=== PATIENT | male | born 1950 | race Caucasian/White ===

== ENCOUNTER 2018-07-10 05:31 | Inpatient (IN) ==
[2018-07-10] MEDS ORDERED: Metoprolol Tartrate 25 MG Tablet PO ONE (05:55)
[2018-07-10] MEDS ORDERED: Chlorhexidine Gluconate 2% 1 Pack (2 Cloths) TOPICAL ONE (05:55)
[2018-07-10] MEDS ORDERED: Sodium Chlor 0.9% Inj 500 ML IV.SIG SCH (06:00)
[2018-07-10] MEDS ORDERED: Thrombin Topical Soln 20,000 UNIT Vial TOPICAL ONE (06:35)
[2018-07-10] MEDS ORDERED: ceFAZolin 2 GM Premix Inj 2 GM/50 ML PIGGYBACK IV.SIG ONE ×2 (06:35→12:03)
[2018-07-10] MEDS ORDERED: Bupivacaine PF 0.5% Inj 10 ML Vial ONE (06:35)
[2018-07-10] MEDS ORDERED: Heparin/NS PF Inj 500 ML ONE ×3 (06:35→13:18)
[2018-07-10] MEDS ORDERED: Gelatin Size 100 Topical Foam ONE (06:35)
[2018-07-10] MEDS ORDERED: Heparin 10,000 UNITS/10 ML Vial (for IV use) ONE ×2 (06:35→13:51)
[2018-07-10] MEDS ORDERED: Protamine Sulfate Inj 50 MG/5 ML Vial ONE (06:35)
[2018-07-10] MEDS ORDERED: Insulin NovoLIN Regular Correctional Sugar Inj ONE (06:41)
[2018-07-10] MEDS ORDERED: Acetaminophen 500 MG Tablet ONE (06:49)
[2018-07-10] MEDS ORDERED: Famotidine PF Inj 20 MG/2 ML Vial ONE (06:49)
[2018-07-10] MEDS ORDERED: Gabapentin 300 MG Capsule ONE (06:49)
[2018-07-10] MEDS ORDERED: Lidocaine PF 1% Inj 5 ML Syringe INFILTRATN ONE (07:31)
[2018-07-10] MEDS ORDERED: Phenylephrine/NS 1000 MCG/10ML Syringe IV.PUSH ONE (07:31)
[2018-07-10] MEDS ORDERED: Neostigmine Inj 5 MG/5 ML Syringe IV.PUSH ONE (07:31)
[2018-07-10] MEDS ORDERED: Glycopyrrolate Inj 1 MG/5 ML Syringe IV.PUSH ONE (07:31)
[2018-07-10] MEDS ORDERED: Sodium Chlor 0.9% Inj 500 ML IV.CONT ONE ×2 (07:31)
[2018-07-10] MEDS ORDERED: fentaNYL Citrate Inj 100 MCG/2 ML Ampul ONE (15:14)
--- NOTE | 2018-07-10 16:08 | P.OP ---
Preoperative Diagnosis: Right lower extremity critical limb ischemia with rest pain Postoperative Diagnosis: Right lower extremity critical limb ischemia with rest pain Date of procedure: 07/10/18 Procedure: 1. Right external iliac artery endarterectomy with patch angioplasty 2. Right common femoral artery endarterectomy with patch angioplasty 3. Right profunda femoral artery endarterectomy patch angioplasty 4. Revision of the proximal anastomosis of right femoropopliteal bypass 5. Jump bypass from right femoropopliteal bypass vein graft to the right peroneal artery using reversed cephalic vein. 6. Right cephalic vein harvest. Anesthesia: GETA Surgeon: Jeffrey Kelley MD Estimated blood loss (mL): 800 IV fluids (mL): 5,000 Operation and Findings: Findings 1. The right external iliac artery was noted to be heavily calcified with significant plaquing and atherosclerotic disease. It was very difficult to get proximal control. This contributed to the majority of our blood loss. 2. Early bifurcation of the profunda femoral artery. The vessel was noted to be heavily calcified. 3. I elected to perform an endarterectomy and redo the proximal anastomosis of the femoral-popliteal bypass graft. 4. A jump bypass from the femoropopliteal vein graft at the level of the knee to the right peroneal artery was performed successfully using the right cephalic vein. The patient has multiphasic dorsalis pedis and posterior tibial signals at the end of the procedure. Operation details The patient was taken to the operating room, laid supine on the OR table. After general trach anesthesia, the patient was prepped and draped in the standard sterile fashion. Timeout was called with all members in the OR in agreement. An incision was made in the right medial calf and dissection was taken down through the subcutaneous tissues electrocautery. The previous femoropopliteal bypass graft was dissected and encircled Silastic loop. The soleus muscle mobilized medially. The peroneal artery identified and dissected. Attention was turned to the right groin. A longitudinal incision was made in the right groin dissection was taken down through the subcutaneous tissues electrocautery. A lot of scarring from previous surgery was encountered. The right external iliac artery, common femoral artery, femoropopliteal bypass graft, superficial femoral artery, profunda femoral artery were dissected and encircled with Silastic loops. Attention was turned to the right cephalic vein harvest. An incision was made in the right wrist just above the cephalic vein. The vein was dissected along its length. All branches ligated and divided. The vein was ligated proximally and distally and removed to use as a conduit. The patient was heparinized. I was able to get proximal control control of the right external iliac artery using multiple clamps. Distal control was obtained. An arteriotomy was created in the common femoral artery and extended caudad and cephalad. The external iliac artery was noted to be heavily calcified with extensive amount of plaque. I performed endarterectomy of the right external iliac artery common femoral artery, and profunda femoral artery successfully. At this point, the clamp was removed and we noted a tear in the right external iliac artery where the clamp was placed. The clamp was reapplied and more cephalad dissection of the right external iliac artery was performed. The vessel was heavily calcified along its entire length. I was able to get proximal control. The artery was opened proximally and further endarterectomy of the external iliac artery was performed. There was a tear in the posterior wall of the artery that was repaired using interrupted 6-0 Prolene sutures. The artery was repaired using a pericardial patch that was cut to appropriate length and secured using a Prolene suture. Hemostasis is achieved by applying multiple Prolene sutures and pledgets. An arteriotomy is created in the patch and the previous femoropopliteal bypass vein graft was anastomosed to the right common femoral artery using a 6-0 Prolene suture in a running fashion. Hemostasis achieved. Attention was turned to the femoropopliteal bypass graft at the level of the knee. Proximal distal control was obtained and arteriotomy is created. The cephalic vein was brought into the field and was reversed. The proximal anastomosis fashioned using a 6-0 Prolene suture in a running fashion. Proximal distal control was obtained in the peroneal artery. Arteriotomy is created and the distal anastomosis fashioned using a 6-0 Prolene suture in running fashion. Hemostasis achieved. All wounds were closed using multiple Vicryl sutures followed by Monocryl suture. The right medial calf wound was closed using fernandez. Sterile dressing was applied. A wound VAC was placed to the right groin. Patient was taken to recovery unit in stable condition.
[2018-07-10] MEDS ORDERED: Morphine Inj 4 MG/ML Vial IV.PUSH PRN (16:11)
[2018-07-10] MEDS ORDERED: Bisacodyl 10 MG Supp RECTAL PRN (16:11)
[2018-07-10] MEDS ORDERED: *morphine SULFATE 4 MG/ML PERIprocedure ONLY ONE (16:15)
[2018-07-10] MEDS ORDERED: *HYDROmorphone PF Inj 1 MG/ML Ampul PERIprocedural Use ONLY ONE (16:32)
[2018-07-10] MEDS: Sod Chloride 0.9% Inj 1,000 ML IV.CONT SCH ×2 (17:10→23:35)
[2018-07-10] MEDS: Senna/Docusate Sodium 8.6/50 MG Tablet PO SCH (20:43)
[2018-07-10] MEDS: Famotidine 20 MG Tablet PO SCH (20:43)
[2018-07-10] MEDS: glipiZIDE 10 MG Tablet PO SCH (21:09)
[2018-07-11 05:16] LABS: Calcium 7.7 mg/dL (8.5-10.1); Potassium 4.2 meq/L (3.5-5.1)
[2018-07-11 05:19] LABS: Hematocrit 30.3 % (39.0-51.0); Hemoglobin 10.6 gm/dL (13.0-17.0); Mean Corpuscular HGB Conc 35.1 % (32.0-36.0); Mean Corpuscular Hemoglobin 32.1 pg (27.0-34.0); Mean Corpuscular Volume 91.5 fL (80.0-100.0); Mean Platelet Volume 8.5 fL (7.0-11.0); Platelet Count 202 th/mm3 (150-450); Red Blood Count 3.31 mil/mm3 (4.50-5.90); Red Cell Distribution Width 13.9 % (11.6-17.2)
[2018-07-11] MEDS: Digoxin 250 MCG Tablet PO SCH (08:17)
[2018-07-11] MEDS: glipiZIDE 10 MG Tablet PO SCH ×2 (08:17→21:19)
[2018-07-11] MEDS: dilTIAZem CD 180 MG Capsule PO SCH (08:19)
[2018-07-11] MEDS: Famotidine 20 MG Tablet PO SCH ×2 (08:19→21:19)
[2018-07-11] MEDS: Senna/Docusate Sodium 8.6/50 MG Tablet PO SCH ×2 (08:19→21:19)
--- NOTE | 2018-07-11 10:43 | P.PNVS ---
Subjective Post Op Day #: 1 Procedure: R groin reconstruction, distal bypass revision with arm vein Subjective/Hospital Course: looks great, pain controlled eager to have a cup of coffee notes that his foot is warmer than it has been in a long time Objective Vital Signs / I&O: Vital Signs 07/10/18 15:52 07/10/18 16:00 07/10/18 16:15 Temperature 98.0 F Pulse Rate 104 H 104 H 101 H Respiratory Rate 15 16 16 Blood Pressure 103/61 107/59 L 113/68 Pulse Oximetry 96 96 94 L 07/10/18 16:30 07/10/18 16:45 07/10/18 17:00 Temperature Pulse Rate 101 H 77 87 Respiratory Rate 16 16 16 Blood Pressure 116/67 105/68 109/59 L Pulse Oximetry 94 L 94 L 93 L 07/10/18 17:15 07/10/18 17:30 07/10/18 17:45 Temperature 98.5 F Pulse Rate 98 H 102 H 101 H Respiratory Rate 16 16 15 Blood Pressure 101/62 112/60 115/68 Pulse Oximetry 93 L 94 L 95 07/10/18 18:00 07/10/18 18:43 07/10/18 20:00 Temperature 97.4 F L Pulse Rate 104 H 108 H Respiratory Rate 16 18 Blood Pressure 108/68 96/66 L Pulse Oximetry 95 94 L 93 L 07/10/18 23:58 07/11/18 04:00 07/11/18 08:00 Temperature 97.4 F L 98.2 F 98.3 F Pulse Rate 74 80 100 H Respiratory Rate 18 18 18 Blood Pressure 97/56 L 125/60 128/63 Pulse Oximetry 92 L 92 L 91 L Intake & Output 07/10/18 07/11/18 07/11/18 18:59 06:59 18:59 Intake Total 5000 / 5000 1959 / 1959 1000 / 1000 Output Total 1875 / 1875 800 / 800 Balance 3125 / 3125 1160 / 1160 1000 / 1000 Weight 110 kg Intake: IV 1000 / 1000 1000 / 1000 NS Inj 1,000 ML @ 125 mls/hr IV 1000 / 1000 1000 / 1000 .CONT .Q8H [facility] Rx#:[id number] Oral 960 / 960 Anesthesia Amount 5000 / 5000 Output: Estimated Blood Loss 800 / 800 Urine Amount (Catheter) 1075 / 1075 800 / 800 Indwelling Temp Sensing 1075 / 1075 800 / 800 Catheter Other: Date of Last Bowel Movement 07/10/18 07/10/18 07/10/18 Exam: resting comfortably R groin Prevena in place R calf incision with Kerlex but no drainage foot warm and excellent Doppler signals R UE incision (cephalic vein harvest) c/d/i Laboratory Results - last 24 hr 07/10/18 07/10/18 07/10/18 11:41 16:45 20:52 WBC RBC Hgb Hct MCV MCH MCHC RDW Plt Count MPV Sodium Potassium Chloride Carbon Dioxide Anion Gap BUN Creatinine Estimated GFR POC Glucose 180 H 219 H Random Glucose Calcium MTS Gel Crossmatch See Detail 07/11/18 07/11/18 07/11/18 04:22 04:22 08:17 WBC 11.0 RBC 3.31 L Hgb 10.6 L D Hct 30.3 L MCV 91.5 MCH 32.1 MCHC 35.1 RDW 13.9 Plt Count 202 MPV 8.5 Sodium 136 Potassium 4.2 Chloride 101 Carbon Dioxide 28.0 Anion Gap 7 BUN 15 Creatinine 0.92 Estimated GFR 82 L POC Glucose 228 H Random Glucose 184 H Calcium 7.7 L D MTS Gel Crossmatch Assessment and Plan - Plan POD#1 s/p R groin reconstruction, distal bypass revision with R cephalic vein 1. continue pulse checks 2. OOB TC/PT consulted 3. D/C Lay 4. ASA resumption today; pradaxa tomorrow; will stop subq hep when pradaxa resumed 5. Prevena off Fri, likely as outpatient 6. Diet Discharge Planning: likely 2-3 days
[2018-07-11] MEDS ORDERED: Enoxaparin Inj 40 MG/0.4 ML Syringe SQ SCH (15:00)
--- NOTE | 2018-07-12 07:46 | P.PNVS ---
Subjective Post Op Day #: 2 Procedure: R groin reconstruction, distal bypass revision with arm vein Subjective/Hospital Course: ambulated some ibeth po voiding since Lay out foot feels fine Objective Vital Signs / I&O: Vital Signs 07/11/18 08:00 07/11/18 09:00 07/11/18 10:00 Temperature 98.3 F Pulse Rate 122 H 120 H 122 H Respiratory Rate 18 Blood Pressure 128/63 Pulse Oximetry 91 L 07/11/18 11:00 07/11/18 12:00 07/11/18 15:22 Temperature 98.5 F Pulse Rate 114 H 115 H 96 H Respiratory Rate 18 Blood Pressure 142/72 H Pulse Oximetry 94 L 07/11/18 16:00 07/11/18 20:00 07/11/18 23:29 Temperature 98.6 F 98.6 F Pulse Rate 90 74 66 Respiratory Rate 18 18 Blood Pressure 114/64 118/57 L Pulse Oximetry 91 L 90 L 07/12/18 00:00 07/12/18 03:29 07/12/18 07:00 Temperature 98.6 F 98.6 F Pulse Rate 67 88 68 Respiratory Rate 18 20 Blood Pressure 121/61 126/58 L Pulse Oximetry 94 L 93 L Intake & Output 07/11/18 07/12/18 07/12/18 18:59 06:59 18:59 Intake Total 1720 / 1720 480 / 480 Output Total 1500 / 1500 450 / 450 Balance 220 / 220 30 / 30 Weight 112 kg Intake: IV 1000 / 1000 NS Inj 1,000 ML @ 125 mls/hr IV 1000 / 1000 .CONT .Q8H [facility] Rx#:[id number] Oral 720 / 720 480 / 480 Output: Urine 0 / 0 450 / 450 Urine Amount (Catheter) 1500 / 1500 Indwelling Temp Sensing 1500 / 1500 Catheter Other: Date of Last Bowel Movement 07/10/18 07/10/18 Exam: R groin Prevena in place R LE incision c/d/i foot warm, motor intact R UE incision ok Laboratory Results - last 24 hr 07/10/18 07/11/18 07/11/18 11:41 08:17 12:17 POC Glucose 228 H 256 H MTS Gel Crossmatch See Detail 07/11/18 07/11/18 17:03 21:21 POC Glucose 233 H 173 H MTS Gel Crossmatch Assessment and Plan - Plan POD#2 s/p R groin reconstruction, distal bypass revision with R cephalic vein 1. continue pulse checks 2. OOB TC/PT consulted 3. started ASA yesterday; pradaxa to start today 4. May shower tomorrow (POD#3) Discharge Planning: likely 1-2 days
[2018-07-12] MEDS: Digoxin 250 MCG Tablet PO SCH (08:13)
[2018-07-12] MEDS: dilTIAZem CD 180 MG Capsule PO SCH (08:14)
[2018-07-12] MEDS: Famotidine 20 MG Tablet PO SCH ×2 (08:14→21:00)
[2018-07-12] MEDS: Senna/Docusate Sodium 8.6/50 MG Tablet PO SCH ×2 (08:14→21:01)
[2018-07-12] MEDS: glipiZIDE 10 MG Tablet PO SCH ×2 (08:14→21:01)
--- NOTE | 2018-07-13 06:41 | P.PNVS ---
Subjective Post Op Day #: 3 Procedure: R groin reconstruction, distal bypass revision with arm vein Subjective/Hospital Course: looks great ambulated yesterday PT worked with him and presently recommending rehab ibeth po pain controlled Objective Vital Signs / I&O: Vital Signs 07/12/18 07:00 07/12/18 08:00 07/12/18 11:00 Temperature 97.9 F Pulse Rate 68 125 H 81 Respiratory Rate 18 Blood Pressure 124/60 Pulse Oximetry 98 07/12/18 12:00 07/12/18 16:00 07/12/18 19:00 Temperature 98.0 F 97.9 F Pulse Rate 104 H 60 53 L Respiratory Rate 18 18 Blood Pressure 109/66 102/54 L Pulse Oximetry 94 L 97 07/12/18 20:00 07/12/18 21:00 07/12/18 22:00 Temperature 98.2 F Pulse Rate 57 L 68 54 L Respiratory Rate 19 Blood Pressure 98/54 L Pulse Oximetry 95 07/12/18 23:20 07/12/18 23:43 07/13/18 00:00 Temperature 98.0 F Pulse Rate 39 L 61 42 L Respiratory Rate 20 Blood Pressure 104/58 L Pulse Oximetry 95 07/13/18 01:00 07/13/18 02:00 07/13/18 03:00 Temperature Pulse Rate 40 L 58 L 84 Respiratory Rate Blood Pressure Pulse Oximetry 07/13/18 03:31 Temperature 98.2 F Pulse Rate 61 Respiratory Rate 19 Blood Pressure 135/58 L Pulse Oximetry 95 Intake & Output 07/12/18 07/12/18 07/13/18 06:59 18:59 06:59 Intake Total 480 / 480 690 / 690 480 / 480 Output Total 450 / 450 800 / 800 400 / 400 Balance 30 / 30 -110 / -110 80 / 80 Weight 112 kg Intake: Oral 480 / 480 690 / 690 480 / 480 Output: Urine 450 / 450 800 / 800 400 / 400 Other: # Voids 4 Date of Last Bowel Movement 07/10/18 07/10/18 07/10/18 Exam: no distress R UE incision c/d/i R Prevena in place R LE incision c/d/i strong PT/DP Doppler signals foot mildly edematous but warm Laboratory Results - last 24 hr 07/10/18 07/12/18 07/12/18 11:41 08:13 12:04 POC Glucose 222 H 201 H MTS Gel Crossmatch See Detail 07/12/18 07/12/18 16:53 21:04 POC Glucose 198 H 183 H MTS Gel Crossmatch Assessment and Plan - Plan POD#3 s/p R groin reconstruction, distal bypass revision with R cephalic vein 1. continue pulse checks 2. OOB TC/PT consulted; suspect he will be cleared for home 3. resumed ASA/Pradaxa 4. May shower today Discharge Planning: Friday
[2018-07-13] MEDS: glipiZIDE 10 MG Tablet PO SCH ×2 (09:57→20:16)
[2018-07-13] MEDS: dilTIAZem CD 180 MG Capsule PO SCH (09:57)
[2018-07-13] MEDS: Digoxin 250 MCG Tablet PO SCH (09:58)
[2018-07-13] MEDS: Senna/Docusate Sodium 8.6/50 MG Tablet PO SCH (09:58)
[2018-07-13] MEDS: Famotidine 20 MG Tablet PO SCH ×2 (09:59→20:17)
[2018-07-14] MEDS: Senna/Docusate Sodium 8.6/50 MG Tablet PO SCH ×2 (06:34→09:16)
--- NOTE | 2018-07-14 08:17 | P.PNVS ---
Subjective Subjective/Hospital Course: doing well ibeth diet Objective Vital Signs / I&O: Vital Signs 07/13/18 09:00 07/13/18 10:00 07/13/18 11:00 Temperature Pulse Rate 63 72 67 Respiratory Rate Blood Pressure Pulse Oximetry 07/13/18 12:00 07/13/18 13:00 07/13/18 13:55 Temperature 98.7 F Pulse Rate 73 70 76 Respiratory Rate 18 Blood Pressure 109/59 L Pulse Oximetry 98 07/13/18 15:00 07/13/18 16:00 07/13/18 17:00 Temperature 98.7 F Pulse Rate 59 L 63 75 Respiratory Rate 15 Blood Pressure 95/46 L Pulse Oximetry 95 07/13/18 18:00 07/13/18 19:00 07/13/18 20:00 Temperature 97.8 F Pulse Rate 66 72 72 Respiratory Rate 18 Blood Pressure 103/57 L Pulse Oximetry 96 07/13/18 21:00 07/13/18 22:00 07/13/18 23:00 Temperature Pulse Rate 63 72 74 Respiratory Rate Blood Pressure Pulse Oximetry 07/14/18 00:00 07/14/18 01:00 07/14/18 02:00 Temperature Pulse Rate 69 74 66 Respiratory Rate 22 Blood Pressure Pulse Oximetry 07/14/18 03:00 07/14/18 04:00 07/14/18 06:00 Temperature 98.1 F Pulse Rate 72 60 67 Respiratory Rate 22 Blood Pressure 110/56 L Pulse Oximetry 95 Intake & Output 07/13/18 07/14/18 07/14/18 18:59 06:59 18:59 Intake Total 1100 / 1100 480 / 480 Output Total 1400 / 1400 700 / 700 Balance -300 / -300 -220 / -220 Weight 112.5 kg Intake: Oral 1100 / 1100 480 / 480 Output: Urine 1400 / 1400 700 / 700 Other: Date of Last Bowel Movement 07/13/18 07/13/18 # Bowel Movements 2 0 Physical Exam: multiphasic pedal signals wounds CDI Laboratory Results - last 24 hr 07/13/18 07/13/18 07/13/18 08:20 12:18 18:27 POC Glucose 174 H 155 H 188 H 07/13/18 20:13 POC Glucose 150 H Assessment and Plan - Plan POD#4 s/p R groin reconstruction, distal bypass revision with R cephalic vein Looks great Home today Discharge Planning: Friday
[2018-07-14] MEDS: glipiZIDE 10 MG Tablet PO SCH (09:16)
[2018-07-14] MEDS: Famotidine 20 MG Tablet PO SCH (09:16)
[2018-07-14] MEDS: Digoxin 250 MCG Tablet PO SCH (09:19)
[2018-07-14] MEDS: dilTIAZem CD 180 MG Capsule PO SCH (09:19)
[2018-07-14 09:53] VITALS: PULSE 86
[2018-07-14 10:03] VITALS: BP 132/74; RESP 19; TEMP 97.7; O2SAT 94
== END 2018-07-14 11:21 | disposition home or self-care (01) | DRG 272 ==
LOC: HSDI 05:31 → HCPC 18:09
PROVIDERS: ADMIT Surgery; ATTEND Surgery
DX: I70.221 Atherosclerosis of native arteries of extremities with rest pain, right leg
CPT/HCPCS: 36415; 36430; 71020; 71046; 76937; 80048; 82948; 82962; 85027; 86850; 86900; 86901; 86923; 93005; 97110; 97116; 97162; 97530; J0690; J1170; J1644; J1650; J2250; J2270; J2370; J2405; J2704; J2710; J2720; J3010; J7030; J7040; J7050; J7120; J8501; P9016